=== PATIENT | male | born 1930 | race Caucasian/White ===

== ENCOUNTER → 2016-10-20 | Outpatient (CLI) | payer OTHER | END | disposition home or self-care (01) | LOC: PCVCCLINIC 11:50 | PROVIDERS: ATTEND Internal Medicine | DX: I25.10 Atherosclerotic heart disease of native coronary artery without angina pectoris (principal); I77.9 Disorder of arteries and arterioles, unspecified; E78.2 Mixed hyperlipidemia; I10 Essential (primary) hypertension; I73.00 Raynaud's syndrome without gangrene | CPT/HCPCS: 80061; 93005; G0463 ==

== ENCOUNTER → 2017-04-27 | Outpatient (CLI) | payer OTHER | END | disposition home or self-care (01) | LOC: PCVCCLINIC 11:27 | PROVIDERS: ATTEND Internal Medicine | DX: I25.10 Atherosclerotic heart disease of native coronary artery without angina pectoris (principal); I77.9 Disorder of arteries and arterioles, unspecified; E78.2 Mixed hyperlipidemia; I73.00 Raynaud's syndrome without gangrene; Z79.82 Long term (current) use of aspirin; Z79.899 Other long term (current) drug therapy | CPT/HCPCS: 80061; 93005; G0463 ==

== ENCOUNTER → 2017-10-26 | Outpatient (CLI) | payer OTHER | END | disposition home or self-care (01) | LOC: PCVCCLINIC 11:59 | DX: I25.10 Atherosclerotic heart disease of native coronary artery without angina pectoris (principal); I10 Essential (primary) hypertension; I77.9 Disorder of arteries and arterioles, unspecified; I73.00 Raynaud's syndrome without gangrene; E78.5 Hyperlipidemia, unspecified; Z79.82 Long term (current) use of aspirin; Z79.899 Other long term (current) drug therapy | CPT/HCPCS: 80061; 93005; G0463 ==

== ENCOUNTER → 2018-11-01 | Outpatient (CLI) | payer OTHER | END | disposition home or self-care (01) | LOC: PCVCCLINIC 11:00 | PROVIDERS: ATTEND Internal Medicine | DX: I25.10 Atherosclerotic heart disease of native coronary artery without angina pectoris (principal); I10 Essential (primary) hypertension; I65.23 Occlusion and stenosis of bilateral carotid arteries; I73.00 Raynaud's syndrome without gangrene; E78.5 Hyperlipidemia, unspecified; E78.00 Pure hypercholesterolemia, unspecified; Z79.82 Long term (current) use of aspirin; Z79.899 Other long term (current) drug therapy | CPT/HCPCS: 36415; 80061; 93005; G0463 ==

== ENCOUNTER → 2018-12-27 | Outpatient (CLI) | payer OTHER ==
--- NOTE | 2018-12-27 17:47 | PCVCIMAG ---
APPROVED REPORT Laterality: Bilateral Patient Location: Out-Patient Indications Stenosis Doppler Spectral Velocity Analysis PSV / EDVPSV / EDV ECA (R) 62 / 13 cm/sECA (L) 67 / 11 cm/s dICA (R) 51 / 22 cm/sdICA (L) 49 / 20 cm/s Galo (R) 51 / 19 cm/smICA (L) 54 / 17 cm/s pICA (R) 44 / 16 cm/spICA (L) 45 / 17 cm/s Bulb (R) 31 / 8 cm/sBulb (L) 44 / 10 cm/s dCCA (R) 44 / 10 cm/sdCCA (L) 56 / 14 cm/s mCCA (R) 60 / 12 cm/smCCA (L) 74 / 19 cm/s Vert (R) 25 / 9 cm/sVert (L) 40 / 13 cm/s ICA/CCA 1.16ICA/CCA 0.96 Basic Measurements Blood Pressure: Pulses: Right Left RightLeft Brachial(Sitting) 128/98vvJu611/80mmHgTemporal Findings The right carotid bulb has mild plaque. The right proximal internal carotid artery shows no significant stenosis. The right common carotid artery shows no significant stenosis. The right external carotid artery shows no significant stenosis. The left carotid bulb has mild plaque. The left proximal internal carotid artery shows no significant stenosis. The left common carotid artery shows no significant stenosis. The left external carotid artery shows no significant stenosis. Conclusion 1. Mild bilateral plaquing without significant stenosis 2. Antegrade vertebral flow
--- NOTE | 2018-12-28 08:21 | PCVCIMAG ---
APPROVED REPORT Study performed: 12/27/2018 13:49:30 EXAM: Comprehensive 2D, Doppler, and color-flow Echocardiogram Patient Location: Echo lab Room #: 2Status: routine BSA: 1.87 HR: 68 bpmBP: 136/82 mmHg Rhythm: NSR Other Information Study Quality: Good Risk Factors: Cardiac Risk Factors: HTN, , Hyperlipidemia Indications CAD Hypertension/HDD Raynauds 2D Dimensions IVSd: 9.98 (7-11mm)LVOT Diam: 22.30 (18-24mm) LVDd: 42.63 mm PWd: 8.60 (7-11mm)Ascending Ao: 43.07 (22-36mm) LVDs: 29.51 (25-40mm) Left Atrium: 23.82 (27-40mm) Aortic Root: 32.87 mm LV Single Plane 4CH: 62.23 % LV Single Plane 2CH: 73.04 % Biplane EF: 69.2 % Volumes Left Atrial Volume (Systole) Single Plane 4CH: 43.26 mLSingle Plane 2CH: 56.30 mL Biplane LA Volume: 52.00 mLLA ESV Index: 28.00 mL/m2 Aortic Valve AoV Peak Bean.: 1.19 m/s AO Peak Gr.: 5.74 mmHgLVOT Max P.54 mmHg LVOT Max V: 1.14 m/s ADDIE Vmax: 3.75 cm2 AI Vmax: 3.71 m/s AI [place]: 2.32 m/s2 AI PHT: 504.02 ms Mitral Valve E/A Ratio: 1.2 MV Decel. Time: 193.68 ms MV E Max Bean.: 0.69 m/s MV A Bean.: 0.56 m/s IVRT: 121.11 ms TDI E/Lateral E': 11.50E/Medial E': 11.50 Medial E' Bean.: 0.06 m/s Lateral E' Bean.: 0.06 m/s Pulmonary Valve PV Peak Bean.: 0.82 m/sPV Peak Gr.: 2.68 mmHg Pulmonary Vein P Vein S: 0.73 m/sP Vein A: 0.32 m/s P Vein D: 0.33 m/sP Vein A Dur.: 72.7 msec P Vein S/D Ratio: 2.21 Tricuspid Valve TR Peak Bean.: 2.67 m/s TR Peak Gr.: 28.57 mmHg TV Vmax: 0.57 m/sPA Pressure: 36.00 mmHg Left Ventricle The left ventricle is normal size. There is normal LV segmental wall motion. There is normal left ventricular wall thickness. Left ventricular systolic function is normal. The left ventricular ejection fraction is within the normal range. LVEF is 65-70%. The left ventricular diastolic function is abnormal. Right Ventricle The right ventricle is normal size. The right ventricular systolic function is normal. Atria The left atrium size is normal. Right atrium is mildly dilated. Aortic Valve Aortic valve is trileaflet, mildly sclerotic. Mild aortic regurgitation. There is no aortic valvular stenosis. Mitral Valve The mitral valve is normal in structure. There is no mitral valve regurgitation noted. No evidence of mitral valve stenosis. Tricuspid Valve The tricuspid valve is normal in structure. Mild tricuspid regurgitation with a PA pressure of 36 mmHg. Mild pulmonary hypertension. Pulmonic Valve The pulmonary valve is normal in structure. There is no pulmonic valvular regurgitation. Great Vessels The aortic root is normal in size. 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 Pericardium There is no pericardial effusion. There is no pleural effusion. <Conclusion> Left ventricular systolic function is normal. There is normal LV segmental wall motion. LVEF is 65-70%. Aortic valve is trileaflet, mildly sclerotic, no stenosis. Mild aortic regurgitation. The mitral valve is normal in structure. No mitral valve regurgitation. Mild tricuspid regurgitation with a pulmonary artery pressure of 36 mmHg. 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
== END | disposition home or self-care (01) ==
LOC: PCVCIMAG 12:42
PROVIDERS: ATTEND Internal Medicine
DX: I65.23 Occlusion and stenosis of bilateral carotid arteries (principal); I25.10 Atherosclerotic heart disease of native coronary artery without angina pectoris; I10 Essential (primary) hypertension; E78.2 Mixed hyperlipidemia
CPT/HCPCS: 93306; 93880